=== PATIENT | male | born 1965 | race Caucasian/White ===

== ENCOUNTER 2016-10-10 12:05 | Observation (INO) | payer OTHER ==
[~2016-10-10] VITALS: Ht 175.3 cm; Wt 100.2 kg
[2016-10-10] VITALS (15 sets, daily range): BP systolic 110–141; BP diastolic 58–92; PULSE 48–75; RESP 12–20; O2SAT 95–100
--- NOTE | 2016-10-10 12:17 | ED.REPORT ---
HPI-Abd Pain M 40 and Over Date of Service October 10, 2016 ED Provider: Justin Smith MD The patient is a 51 year old male who presents to the ED sent from [facility] with intermittent, RLQ abdominal pain for the past 2 days. The pain was initially dull and has become "sharp." There are no particular body movements that make it worse, the pain comes and goes on its own. C/o associated nausea. He denies fever, vomiting, dysuria, hematuria, penile discharge, and back pain. He has never experienced pain like this before. His last meal was as protein shake this morning at 0715. Nursing Notes Stated Complaint: ABD PAIN SENT BY [facility] Chief Complaint: Male Abdominal Pain Nursing Notes Reviewed: Yes Allergies: Coded Allergies: No Known Allergies (Unverified , 10/10/16) Scheduled Cholecalciferol (Vitamin D3) (Vitamin D3) 5,000 Unit Capsule 5,000 UNIT PO DAILY Chromium Picolinate (Chromium Picolinate) 200 Mcg Capsule 200 MCG PO DAILY Cyanocobalamin (Vitamin B-12) (Vitamin B-12) 1,000 Mcg Tablet 1,000 MCG PO DAILY Fish Oil/Borage/Flax/Om3,6,9#1 (Triple [place] Complex 3-6-9) 400 Mg Capsule 400 MG PO DAILY Gluc 2Kcl/Chondr/Marva Hy/Hy AC (Glucosamine & Chondroitin Cap) 1 Each Capsule 1 EACH PO DAILY Green Tea [place] Extract (Green Tea) 1 Each Capsule 1 EACH PO DAILY Lutein Extract/Zeaxanthin Ext (Lutein 15 mg Softgel) 1 Each Capsule 1 EACH PO DAILY Multivitamin (Multivitamins) 1 Each Capsule 1 EACH PO DAILY Ubidecarenone (Coq-10) 30 Mg Capsule 30 MG PO DAILY Scheduled PRN Calcium Carbonate (Tums) 500 Mg Tab.chew 500 MG PO QID PRN PRN For Dyspepsia or Heartburn General Time Seen by MD: 12:14 Chief Complaint Abdominal pain Hx Obtained From: Patient Arrived By: Walk-in Sudden in Onset?: Yes Onset Occurred: 2 days ago Symptom Duration: Since onset Location: : RLQ Quality: Painful, Sharp Severity: Current: Moderate Recent Healthcare: Recent doctor visit Similar Sx Previous: Yes Past Medical History Past Medical History denies Past Surgical History denies Social History Other Social History: Good social support, Local resident Ambulatory Status Independent Review of Systems GI: Reports: Abdominal pain, Nausea, Denies: Vomiting Male: Denies Dysuria, Denies Hematuria, Denies Penile discharge Musculoskeletal: Denies: Back pain Complete sys rev & neg: except as marked. Physical Exam Initial Vital Signs Vital Signs (First) Date Time Temp Pulse Resp B/P Pulse Ox O2 Delivery O2 Flow Rate FiO2 10/10/16 12:08 36.6 64 18 129/92 97 Room Air Initial VS: Reviewed Head / Eyes: Atraumatic, Normocephalic, PERRL ENT: Mucous membranes moist Neck: Supple, Non-tender Extremities: Vascular intact, Neuro intact, No swelling, No tenderness Skin: Warm, Dry General/Constitutional: Awake, Alert, Cooperative, Not toxic appearing Respiratory / Chest: Atraumatic, Breath sounds NL, Breath sounds = bilat, No respiratory distress Cardiovascular: Heart rate NL, Regular rhythm, Heart sounds NL Abdomen: No guarding, No rebound Tenderness/Guarding/Rebound: Positive: Tender RLQ... Back: Atraumatic, Inspection NL, Full range of motion Interpretation & Diagnostics Interpretation & Diagnostics: APPENDIX ULTRASOUND IMPRESSION: Appendix is not clearly identified and appendicitis cannot be excluded. If indicated CT could be performed for further assessment Dictated by: Jesus Ness RRA Interpreted: Mel Schwartz MD on 10/10/2016 at 13:59 Transcribed by: DARCI on 10/10/2016 at 14:01 Lab Results Interpretation Result Diagram: 10/10/16 1241 10/10/16 1241 Test 10/10/16 12:41 10/10/16 13:00 White Blood Count 8.0th/mm3 (3.8-10.1) Red Blood Count 5.45mil/mm3 (4.40-5.80) Hemoglobin 16.3g/dL (13.8-17.2) Hematocrit 48.2% (41.0-50.0) Mean Corpuscular Volume 88.4fL (81-100) Mean Corpuscular Hemoglobin 29.9pg (27.0-35.0) Mean Corpuscular Hemoglobin Concent 33.8% (32.0-37.0) Red Cell Distribution Width 13.3% (12.3-15.4) Platelet Count 246bil/L (150-400) Neutrophils (%) (Auto) 50.7% (40-74) Lymphocytes (%) (Auto) 33.0% (14-46) Monocytes (%) (Auto) 10.8% (4-12) Eosinophils (%) (Auto) 5.0% (0-5) Basophils (%) (Auto) 0.4% (0-3) Sodium Level 137mEq/L (134-144) Potassium Level 4.2mEq/L (3.5-5.2) Chloride Level 99mEq/L (97-108) Carbon Dioxide Level 24mmol/L (18-29) Blood Urea Nitrogen 19mg/dL (6-24) Creatinine 1.16mg/dL (0.76-1.27) Estimat Glomerular Filtration Rate 71mL/min (>59) Glucose Level 101mg/dL (60-99) Calcium Level 9.7mg/dL (8.5-10.1) Magnesium Level 2.1mg/dL (1.6-2.6) Total Bilirubin 0.6mg/dL (0.0-1.2) Aspartate Amino Transf (AST/SGOT) 19U/L (0-50) Alanine Aminotransferase (ALT/SGPT) 25U/L (0-44) Alkaline Phosphatase 63U/L (25-150) Total Protein 7.5g/dL (6.4-8.4) Albumin 4.4g/dL (3.4-5.0) Lipase 64U/L (13-60) Urine Color Yellow (YELLOW) Urine Appearance Hazy (CLEAR,HAZY) Urine pH 5.5 (5.0-8.0) Urine Specific [place] 1.025 (1.003-1.035) Urine Protein Negativemg/dL (NEG,TRACE) Urine Glucose (UA) Negativemg/dL (NEGATIVE) Urine Ketones Negativemg/dL (NEGATIVE) Urine Occult Blood Negative (NEGATIVE) Urine Nitrite Negative (NEGATIVE) Urine Bilirubin Negative (NEGATIVE) Urine Urobilinogen Normalmg/dL (NORMAL) Urine Leukocyte Esterase Negative (NEGATIVE) Urine RBC 0-2/hpf (0-2) Urine WBC 0-5/hpf (0-5) Urine Epithelial Cells Few/hpf (NONE-MOD) Urine Crystals None seen (NONE SEEN) Urine Bacteria Few/hpf (NONE-FEW) Urine Hyaline Casts None/lpf (NONE) Urine Granular Casts None seen (NONE SEEN) Urine Waxy Casts None seen (NONE SEEN) Urine Red Blood Cell Casts None seen (NONE SEEN) Urine White Blood Cell Casts None seen (NONE SEEN) Urine Mucus None seen (None Seen) Urine Trichomonas None seen (NONE SEEN) Urine Yeast None (NONE SEEN) Urinalysis Comment Amorphous sediment Urine Culture Reflexed Not indicated Hold Urine Received (Received) CT Abd / Pelvis Interpretation IMPRESSION: 1. Mild enlargement of the appendix with mild wall thickening and fat stranding as well as slightly increased enhancement. The constellation of findings are compatible with mild appendicitis without evidence of perforation or appendicolith. 2. Soft tissue fullness extending posteriorly from the body of the pancreas without a discrete well-defined mass identified. Consider followup evaluation with a pancreatic protocol CT or MRI to exclude a mass lesion. Findings discussed with Dr. Smith on 10/10/16 at 2:25 PM. Dictated by: Naresh Hernández M.D. on 10/10/2016 at 14:22 Approved by: Naresh Hernández M.D. on 10/10/2016 at 14:33 Study type: Abdominal CT no contrast Interpretation / Wet Read by: Interpret - Radiologist Re-Eval/Medical Decision Med Decision/Clinical Course Appendicitis. Discussed with surgeon will admit to OR. Zosyn given. Blood cultures sent. 2 L normal saline given. Consultation : Call Returned at: 14:28 Laborer Tin Can: Agrees with eval, Agrees with plan Note: Case discussed with radiology. Conclusive appendectomy. Plan to admit to OR. Counseled Regarding: Diagnosis, Lab results, Need for admission Discharge & Departure Primary Impression: Appendicitis Appendicitis type: acute appendicitis Acute appendicitis type: unspecified acute appendicitis type Qualified Code: K35.80 - Unspecified acute appendicitis Disposition: ADMITTED TO HOSPITAL Vital Signs - All Vital Signs Date Time Temp Pulse Resp B/P Pulse Ox O2 Delivery O2 Flow Rate FiO2 10/10/16 12:46 36.6 75 20 134/86 97 Room Air 10/10/16 12:08 36.6 64 18 129/92 97 Room Air )( All Prior VS Reviewed: Yes Condition: Stable Referrals: [facility] Scribe Attestation Portion of this note were transcribed by Amada Hou. I, Dr. Smith, personally performed the history, physical exam, and medical decision-making: I reviewed and confirmed the accuracy for the information in the transcribed note. Signed by: sanchez Swenson, 10/10/16 1500 copies to: [facility] Justin Smith MD October 10, 2016 12:17 Amada Hou October 10, 2016 12:39
[2016-10-10] MEDS ORDERED: 0.9% Sodium Chloride 1,000 ML IV ONE ×2 (12:38→14:55)
[2016-10-10] MEDS ORDERED: Ondansetron 2 mg/mL 2 mL Inj IVPUSH PRN ×4 (12:40→19:45)
[2016-10-10 12:52] LABS: BASOPHILS % (AUTO) 0.4 % (0-3); MONOCYTES % (AUTO) 10.8 % (4-12); Mean Corpuscular Hemoglobin 29.9 pg (27.0-35.0); Mean Corpuscular Volume 88.4 fL (81-100); NEUTROPHILS % (AUTO) 50.7 % (40-74); Platelet Count 246 bil/L (150-400)
[2016-10-10 13:28] LABS: Magnesium 2.1 mg/dL (1.6-2.6)
--- NOTE | 2016-10-10 14:01 | DRSVH ---
PROCEDURE: US APPENDIX INDICATIONS: RLQ r/o appy TECHNIQUE: Real-time focused scanning was performed of the abdomen with attention to the appendix, with image do cumentation. COMPARISON: None. FINDINGS: Limited evaluation of the right lower quadrant demonstrates no abnormalities. The appendix is not cl early identified sonographically. No definite abnormal fluid collections or masses seen. Focal righ t lower quadrant tenderness is noted with compression and there is adjacent peristalsing bowel. IMPRESSION: Appendix is not identified; appendicitis cannot be excluded. If indicated CT could be pe rformed for further assessment Dictated by: Jesus Ness RRA Interpreted: Mel Schwartz MD on 10/10/2016 at 13:59 Transcribed by: DARCI on 10/10/2016 at 14:01 Approved by: Mel Schwartz M.D. on 10/10/2016 at 17:48
--- NOTE | 2016-10-10 14:34 | DRSVH ---
PROCEDURE: CT ABDOMEN AND PELVIS WITH CONTRAST ([id number]) INDICATIONS: RLQ tenderness TECHNIQUE: After the administration of oral and intravenous contrast, 5 mm thick sections acquired from the diap hragms to the symphysis. 5 mm thick coronal and sagittal reformats were performed. For radiation do se reduction, the following was used: automated exposure control, adjustment of mA and/or kV accordi ng to patient size. COMPARISON: None. FINDINGS: Image quality: Excellent. ABDOMEN: Lung bases: There is mild dependent atelectasis. Heart size is normal. Solid organs: There is mild hypoattenuation of the liver consistent with fatty infiltration with rela tive sparing along the gallbladder fossa in the left hepatic lobe. The spleen is normal in size. Ga llbladder appears within normal limits without calcified gallstones. Biliary system is non-dilated. There is a lobulated component of the body of the pancreas extending posteriorly which appears isoat tenuating. A discrete mass is not definitively identified. No adrenal nodules. Kidneys and a strai ght hydronephrosis. There is a small left renal cyst. Peritoneum and bowel: Stomach, small bowel, and colon loops are normal in caliber and wall thickness . The appendix measures up to 9 mm in diameter with slight wall thickening proximally and minimal pe riappendiceal fat stranding. There is slightly increased wall enhancement. No appendicolith. Findi ngs suggest early appendicitis. No associated free fluid or fluid collections. No free air. The co marysol demonstrates diverticulosis without acute diverticulitis. Nodes and vessels: No retroperitoneal or mesenteric adenopathy. Aorta and inferior vena cava are no rmal in caliber. Miscellaneous: No ventral hernias. PELVIS: Genitourinary: Bladder wall thickness is normal. Miscellaneous: No inguinal hernias or adenopathy. Bones: No suspicious bony lesions. No vertebral body compression fractures. IMPRESSION: 1. Mild enlargement of the appendix with mild wall thickening and fat stranding as well as slightly increased enhancement. The constellation of findings are compatible with mild appendicitis without e vidence of perforation or appendicolith. 2. Soft tissue fullness extending posteriorly from the body of the pancreas without a discrete well- defined mass identified. Consider followup evaluation with a pancreatic protocol CT or MRI to exclud e a mass lesion. Findings discussed with Dr. Smith on 10/10/16 at 2:25 PM. Dictated by: Naresh Hernández M.D. on 10/10/2016 at 14:22 Approved by: Naresh Hernández M.D. on 10/10/2016 at 14:33
[2016-10-10] MEDS ORDERED: Alum-Mag Hydrox-Simeth 30 mL Suspension PO PRN (14:55)
[2016-10-10] MEDS ORDERED: Piperacillin-Tazo 3.375 Gm Inj 3.375 GM in Dextrose 5% Minibag Plus 50 ML IV ONE ×2 (14:55→17:00)
[2016-10-10] MEDS ORDERED: fentaNYL-PF 50 mCg/mL 2 mL Inj ONE (15:27)
[2016-10-10] MEDS ORDERED: HYDROmorphone 2 mg/mL Inj ONE (15:27)
[2016-10-10] MEDS ORDERED: Neostigmine 1 mg/mL 10 mL Inj ONE (15:27)
[2016-10-10] MEDS ORDERED: Glycopyrrolate 0.2 MG/ML 1mL Inj ONE (15:27)
[2016-10-10] MEDS ORDERED: Dexamethasone 4 mg/mL Inj ONE (15:27)
[2016-10-10] MEDS ORDERED: Propofol 10,000 mCg/mL 20 mL Inj ONE (15:27)
[2016-10-10] MEDS ORDERED: Rocuronium 10 mg/mL 5 mL Inj ONE (15:27)
[2016-10-10] MEDS ORDERED: Ondansetron 2 mg/mL 2 mL Inj ONE (15:27)
--- NOTE | 2016-10-10 15:43 | HP ---
[address] [address] HISTORY AND PHYSICAL PATIENT: ENDY SUAREZ : 1965 MR#: [id number] ADMIT: 10/10/2016 JOB ID: [id number] CHIEF COMPLAINT: A 51-year-old gentleman with acute appendicitis seen in consultation at the request of Justin Masters M.D. HISTORY OF PRESENT ILLNESS: The patient is a 51-year-old gentleman who developed abdominal pain two days ago that was on Saturday initially in the mid abdomen, then slowly migrated to the right lower side and became more sharp. He presented to [facility] earlier today and was then sent to the emergency department. He has had mid abdominal pain a long time ago, but never like this. He has never had a colonoscopy. OTHER MEDICAL PROBLEMS: Obesity. PRIOR OPERATIONS: None. REVIEW OF SYSTEMS: Twelve point review of systems negative other than the pertinent positives noted in the history of present illness and other medical problems. MEDICATIONS AT HOME: None. ALLERGIES: None. SOCIAL HISTORY: He works in [email or web address] and [employer] in [employer]. He does not smoke. He does walk for exercise. INVESTIGATIONS: Labs of October 10, 2016, WBC 8.0, hemoglobin 16.3, platelet count 246. Glucose 101, creatinine 1.16, lipase 64. Ultrasound obtained could not visualize the appendix. Abdominal CT with contrast performed showed mild enlargement of the appendix with wall thickening and fat stranding as well as increased enhancement. There was also soft tissue fullness seen to be extending posterior from the body of the pancreas without a discrete mass. PHYSICAL EXAM: A 51-year-old gentleman in no acute distress. BMI 32.8, temperature 36.6, pulse 75, blood pressure 134/86, saturating 97% on room air. Eyes: Normal pupils, conjunctivae. Ears, nose, and throat: Normal external appearance. Neck: No lymphadenopathy or jugular venous distention. Cardiovascular: Regular rate and rhythm. Respiratory: Normal effort, clear to auscultation. Gastrointestinal: Focally tender to palpation in the right lower quadrant. Musculoskeletal: Normal strength in extremities. Neurologic: No gross deficits. Psychiatric: Alert, appropriate. ASSESSMENT AND PLAN: Acute appendicitis. Discussed the pathophysiology and treatment rationale and discussed laparoscopic appendectomy and the recent exploration of non operative management. He chose to proceed with the laparoscopic appendectomy. We are going to start him on antibiotics. After discussing the risks, benefits, and alternatives, he wished to proceed and we will go ahead accordingly.
[2016-10-10] MEDS ORDERED: GREE1CAP PO (15:55)
[2016-10-10] MEDS ORDERED: CALC500T9 PO (15:55)
[2016-10-10] MEDS ORDERED: FISH400C2 PO (15:55)
[2016-10-10] MEDS ORDERED: MULT1CAP33 PO (15:55)
[2016-10-10] MEDS ORDERED: UBID30CA12 PO (15:55)
[2016-10-10] MEDS ORDERED: CYAN10008 PO (15:55)
[2016-10-10] MEDS ORDERED: GLUC-120 PO (15:55)
[2016-10-10] MEDS ORDERED: CHRO200C PO (15:55)
[2016-10-10] MEDS ORDERED: CHOL5000 PO (15:55)
[2016-10-10] MEDS ORDERED: LUTE1CAP PO (15:55)
--- NOTE | 2016-10-10 17:54 | NUR ---
Admit at 1620 to room 248-1 Pt arrived in w/ch from ER. Able to stand and transfer to bed indep. c/o intermit pain, sharp and passes after a short time pt not wanting to take medication at this time. 1755 pt taken to OR on a stretcher. belongings left in room, watch, phone clothing pt notified sister via text about this hospitalization.
[2016-10-10] MEDS ORDERED: Lactated Ringer's 500 ML IV PRN (18:01)
[2016-10-10] MEDS ORDERED: Lactated Ringer's 1,000 ML IV SCH (18:01)
[2016-10-10] MEDS ORDERED: Lactated Ringer's 1,000 ML IV ONE (18:01)
--- NOTE | 2016-10-10 18:01 | PCM.HPANE ---
Patient Data Date of Service: October 10, 2016 Surgeon Admitting Provider:Marni Sanchez MD Attending Provider:Marni Sanchez MD Primary Care Physician:Naresh Clark MD Other Provider: Reason for Visit APPY Ht/WT & BMI Height (Feet): 5 Height (Inches): 9.00 Weight (Kilograms): 100.200 Body Mass Index 32.72 Allergies Coded Allergies: No Known Allergies (Unverified , 10/10/16) Past Anesthesia History Anesthesia History: Denies:: Anesthesia Reactions Diabetes History Hx Diabetes?: No MRSA MRSA: No Medications Hypertension Medication: No Home Meds Incl Beta Biju: No Reported Medications Chromium Picolinate 200 Mcg [id number] Mcg PO DAILY 10/10/16 Green Tea [place] Extract (Green Tea)1 Each Capsule1 Each PO DAILY 10/10/16 Cholecalciferol (Vitamin D3) (Vitamin D3)5,000 Unit Capsule5,000 Unit PO DAILY 10/10/16 Calcium Carbonate (Tums)500 Mg Tab.xtct994 Mg PO QID PRN For Dyspepsia or Heartburn 10/10/16 Ubidecarenone (Coq-10)30 Mg [id number] Mg PO DAILY 10/10/16 Lutein Extract/Zeaxanthin Ext (Lutein 15 mg Softgel)1 Each Capsule1 Each PO DAILY 10/10/16 Gluc 2Kcl/Chondr/Marva Hy/Hy AC (Glucosamine & Chondroitin Cap)1 Each Capsule1 Each PO DAILY 10/10/16 Fish Oil/Borage/Flax/Om3,6,9#1 (Triple [place] Complex 3-6-9)400 Mg [id number] Mg PO DAILY 10/10/16 Cyanocobalamin (Vitamin B-12) (Vitamin B-12)1,000 Mcg Tablet1,000 Mcg PO DAILY 10/10/16 Multivitamin (Multivitamins)1 Each Capsule1 Each PO DAILY 10/10/16 History History of ENT Problems?: No HEENT History: Positive for:: Sinus Problem (sinus infection every other fall) Denies:: Abnormal Airway Cataracts Difficult Intubation Dysphagia Glaucoma Hearing Problem TMJ Denture Type: None Teeth Condition: Within Normal Limits Hx of Heart Problems?: No Cardiovascular History: Denies:: Cardiac Surgery Chest Pain Congestive Heart Failure Heart Murmur Hypertension Irregular Heartbeat Pacemaker Thrombophlebitis Hx of Respiratory Problem?: No Respiratory History: Denies:: Tuberculosis Hx Neurologic Problems?: No Hx of GI Problems?: No Hx of Problems?: No Genitourinary History: Denies:: HX of Hemodialysis Kidney Stones HX of Peritoneal Dialysis: No Male Hx: Denies:: Prostate Problems Scrotal Mass Testicular Surgery Hx Musculoskeletal Problems?: No Hx of Psycho/Social Problems?: No Hx Surgeries?: No Hx Any Other Health Problems?: No Other History: Denies:: Cancer Hospitalization Thyroid Disease History Blood Transfusions: Positive for:: Accept Blood Products? Denies:: Blood Transfuse Reaction Blood Transfusions Hx Diabetes: No Hx Alcohol Use: NoAlcoholic Drinks Per Day: wine 1-2x per yearHx Substance Use : NoHave You Smoked inLast 12 mo: No Stop/Bang Treated for Sleep Apnea?: No Do You Have a CPAP Machine?: No S-Snoring: Do You Snore Loudly: Yes T-Tired: feel tired, fatigued: Yes O-Obsered: Observed not breath: No P-Blood Pressure: treated: No B- Body Mass Index > 35 kg/m2: No A- Age over 50: Yes N- Neck Large Circumference: No G- Gender Male: Yes DAYA Total Score: 3 DAYA Risk Assessment: High Risk, =/>3 Yes Risk Assessment Category Category 1A: Patient has history of documented sleep apnea, and HAS NOT received any narcotic, sedative or anesthesia administration during this stay. Category 1B: Patient has history of documented sleep apnea, and HAS received any narcotic , sedative or anesthesia administration during this stay Category 2: Patient has SUSPECTED Obstructive Sleep Apnea, and HAS received any narcotic , sedative or anesthesia administration during this stay. Category 3: Patient has SUSPECTED Obstructive Sleep Apnea and HAS NOT received narcotic, sedative or anesthesia administration during this stay. Category 4: Outpatient in Procedural Areas with known sleep apnea or who screen positive for High Risk via the STOP/BANG questionnaire. Exam Exam Vital Signs Vital Signs Date Time Temp Pulse Resp B/P Pulse Ox O2 Delivery O2 Flow Rate FiO2 10/10/16 15:43 36.8 65 20 141/79 98 Room Air 10/10/16 12:46 36.6 75 20 134/86 97 Room Air 10/10/16 12:08 36.6 64 18 129/92 97 Room Air General Appearance: Alert, Oriented X3, Cooperative, Mild Distress HEENT/AIRWAY: MP 2 Lungs: Normal Air Movement Heart: Exam Unremarkable Meds/Labs/Diagnostics Admission Meds Current Medications Sodium Chloride 1,000 ml @ 0 mls/hr Q0M ONCE IV Last administered on 13:07; Start 10/10/16 at 12:38; Stop 10/10/16 at 12:39; Status DC Sodium Chloride 1,000 ml @ 0 mls/hr Q0M ONCE IV Last administered on 15:22; Start 10/10/16 at 14:55; Stop 10/10/16 at 14:56; Status DC Piperacillin Sod/ Tazobactam Sod/ Dextrose/Water (Zosyn 3.375 Gm Inj/D5W Minibag Plus) 50 ml @ 100 mls/hr ONCE ONCE IV Last administered on 10/10/16 17:33; Start 10/10/16 at 17:00; Stop 10/10/16 at 17:29; Status DC Labs Test 10/10/16 12:41 10/10/16 13:00 White Blood Count 8.0th/mm3 (3.8-10.1) Red Blood Count 5.45mil/mm3 (4.40-5.80) Hemoglobin 16.3g/dL (13.8-17.2) Hematocrit 48.2% (41.0-50.0) Mean Corpuscular Volume 88.4fL (81-100) Mean Corpuscular Hemoglobin 29.9pg (27.0-35.0) Mean Corpuscular Hemoglobin Concent 33.8% (32.0-37.0) Red Cell Distribution Width 13.3% (12.3-15.4) Platelet Count 246bil/L (150-400) Neutrophils (%) (Auto) 50.7% (40-74) Lymphocytes (%) (Auto) 33.0% (14-46) Monocytes (%) (Auto) 10.8% (4-12) Eosinophils (%) (Auto) 5.0% (0-5) Basophils (%) (Auto) 0.4% (0-3) Sodium Level 137mEq/L (134-144) Potassium Level 4.2mEq/L (3.5-5.2) Chloride Level 99mEq/L (97-108) Carbon Dioxide Level 24mmol/L (18-29) Blood Urea Nitrogen 19mg/dL (6-24) Creatinine 1.16mg/dL (0.76-1.27) Estimat Glomerular Filtration Rate 71mL/min (>59) Glucose Level 101mg/dL (60-99) Calcium Level 9.7mg/dL (8.5-10.1) Magnesium Level 2.1mg/dL (1.6-2.6) Total Bilirubin 0.6mg/dL (0.0-1.2) Aspartate Amino Transf (AST/SGOT) 19U/L (0-50) Alanine Aminotransferase (ALT/SGPT) 25U/L (0-44) Alkaline Phosphatase 63U/L (25-150) Total Protein 7.5g/dL (6.4-8.4) Albumin 4.4g/dL (3.4-5.0) Lipase 64U/L (13-60) Hold Urine Received (Received) Plan Impression Patient chart reviewed, patient interviewed and anesthestic plan with risks, benefits, and alternatives discussed, and informed consent obtained. ASA Physical Status: ASA1 Normal Healthy Anesthetic Plan: GA Bene/Risks/Altern/Consents: Yes HP Complete Prior to Induction: Yes Jhonatan Caro MD October 10, 2016 17:40
[2016-10-10] MEDS ORDERED: MetoCLOpramide 5 mg/mL 2 mL Inj IVPUSH PRN ×2 (18:05→19:45)
[2016-10-10] MEDS ORDERED: fentaNYL-PF 50 mCg/mL 2 mL Inj IVPUSH PRN (18:05)
[2016-10-10] MEDS ORDERED: HYDROmorphone 1 mg/mL Inj IVPUSH PRN (18:05)
[2016-10-10] MEDS ORDERED: Dexamethasone 4 mg/mL Inj IVPUSH PRN (18:05)
[2016-10-10] MEDS ORDERED: Labetalol 5 mg/mL 4 mL Inj IV PRN (18:05)
[2016-10-10] MEDS ORDERED: EPHEDrine Sulfate 50 mg/mL Inj IVPUSH PRN (18:05)
[2016-10-10] MEDS ORDERED: Atropine 0.4 mg/mL Inj IVPUSH PRN (18:05)
[2016-10-10] MEDS ORDERED: Phenylephrine 10,000 mCg/mL Inj IVPUSH PRN (18:05)
[2016-10-10] MEDS ORDERED: Bupivacaine-MPF 0.5% 30 mL Inj INFILTRATE ONE (18:31)
--- NOTE | 2016-10-10 19:43 | PCM.ANEP1 ---
Post Anesthesia PACU Phase 1 Assessment Vital Signs Vital Signs Date Time Temp Pulse Resp B/P Pulse Ox O2 Delivery O2 Flow Rate FiO2 10/10/16 15:43 36.8 65 20 141/79 98 Room Air 10/10/16 12:46 36.6 75 20 134/86 97 Room Air 10/10/16 12:08 36.6 64 18 129/92 97 Room Air Anesthetic Administered: GA Level of Alertness: Drowsy, not talking BOWERS's with Equal Strength: Yes Pain: No Nausea or Vomiting: No CV Function and Hydration: No Airway Device: Oralpharangeal Airway Oxygen Delivery: Simple Mask Lungs: Normal Air Movement PACU Phase 2 Assessment Complications: No Follow up Care: N/A Patient Instructions Provided: N/A Jhonatan Caro MD October 10, 2016 19:43
--- NOTE | 2016-10-10 19:44 | PCM.SURGPO ---
Immediate Operative Note Date of Surgery: October 10, 2016 Pre Operative Diagnosis Acute Appendicitis Post Operative Diagnosis Acute Non perforated Appendicitis Procedure Laparoscopic Appendectomy Surgeon and Diamond Powder Mixer Surgeon: Marni Sanchez MD Assistants: Mohamud Clinton, PAC Findings Non perforated , retrocecal Complications There were no periprocedural complications identified. Surgical Specimen Removed: Yes Specimen sent to Pathology: Yes Anesthetic Administered: GA Grafts, Implants: None Output, Estimated Blood Loss: 1 Blood Admin during surgery: No Attending Statement Oil Recovery Unit Operator listed was medically required for the successful completion of the case Marni Sanchez MD October 10, 2016 19:44
[2016-10-10] MEDS ORDERED: DEXTROSE 5% IV SCH (19:45)
[2016-10-10] MEDS ORDERED: Sodium Chloride LOK Flush 10 mL Syringe IVFLUSH PRN (19:45)
[2016-10-10] MEDS ORDERED: CEFOTETAN IV SCH (19:45)
--- NOTE | 2016-10-10 20:23 | NUR ---
Report received from PACU at 2022 from Lori.
[2016-10-10] MEDS ORDERED: Cefotetan Inj 2,000 MG in IV Premix 1 EACH IV SCH (20:30)
[2016-10-10 20:43] LABS: APPEARANCE,URINE HAZY (CLEAR,HAZY); COLOR,URINE YELLOW (YELLOW); OCCULT BLOOD,URINE NEGATIVE (NEGATIVE); PH,URINE 5.5 (5.0-8.0); UROBILINOGEN,URINE NORMAL (NORMAL)
--- NOTE | 2016-10-10 20:50 | NUR ---
POST OP Pt arrived on flood from PACU at 2045, transferred self to bed. No pain, strong need to void. SL, 2L NC, switched to RA. Cpox placed for DAYA. 3 lap sites with steri-strips and bandaids CDI, no drainage. Gave water, tolerated well. Hourly rounding.
[2016-10-10] MEDS ORDERED: 0.9% Sodium Chloride 100 ML ONE (21:56)
[2016-10-11 00:55] VITALS: BP 136/79; PULSE 65; RESP 18; O2SAT 95
--- NOTE | 2016-10-11 02:37 | OP ---
[address] [address] OPERATIVE REPORT PATIENT: ENDY SUAREZ : 1965 MR#: [id number] ADMIT: 10/10/2016 JOB ID: [id number] DATE OF SURGERY: 10/10/2016 PREOPERATIVE DIAGNOSIS(ES): Acute appendicitis. POSTOPERATIVE DIAGNOSIS(ES): Acute non perforated appendicitis. SURGEON: Marni Sanchez MD DOBBY LOOM CHAIN PEGGER: Cheko Clinton PA-C PROCEDURE PERFORMED: Laparoscopic appendectomy. INDICATIONS: The patient is a 51-year-old gentleman who developed abdominal pain two days ago which then became more focal on the right side prompting him to present to [facility] who then sent him to the emergency department. His white count was normal but CT was consistent with appendicitis and prompting a surgical consult. After discussing the risks, benefits, and alternatives, he was brought to the operating room for laparoscopic appendectomy. PROCEDURE DETAILS: He was placed in the supine position, underwent smooth induction of general anesthesia. The Brown catheter was placed. Abdomen was prepped and draped in the usual sterile fashion. Surgical time-out was undertaken using safety checklist, and all were in agreement. We then entered the abdomen in an infraumbilical location under open Ivana technique. We obtained pneumoperitoneum with a 5-mm port and then upsized to a 12. I then placed two 5-mm ports, one in the suprapubic location and the other one in the left lower quadrant. I then noticed adhesions off of the cecum in the right colon and the terminal ileum to the abdominal wall with the appendix in a retrocecal location. I took these adhesions down sharply and was able to identify the base of the appendix and was able to dissect a defect within the mesentery and divided the appendix with an Endo-CHRISTOPHER stapler. I then took down the mesentery of the appendix with electrocautery close to the specimen ensuring good hemostasis. After that I suctioned all the fluid out from the right lower quadrant in the pelvis, place the appendix in an EndoCatch bag and removed it through the umbilical port site. Pneumoperitoneum was evacuated. The umbilical site fascia was closed with [id number] 0-Vicryl suture. Skin was reapproximated with 4-0 Monocryl. Steri-Strips and sterile dressing were applied. Patient was recovered from anesthesia and was taken to the recovery room in stable condition.
[2016-10-11 05:55] VITALS: BP 131/83; PULSE 68; RESP 20; O2SAT 100
[2016-10-11] MEDS ORDERED: Polyethylene Glycol (PEG) 17 Gm Powder PO SCH (08:30)
--- NOTE | 2016-10-11 08:45 | PCM.PNSURG ---
Subjective Date of Service: October 11, 2016 Visit Information: Laparoscopic Appendectomy for Appendicitis Post-Op Day # 1 Date of Admission: October 10, 2016 at 15:26 Hospital Day # 2 Subjective: Feels well. Pain controlled just with tylenol Objective Vital Sign- Last 8 Hours Date Time Temp Pulse Resp B/P Pulse Ox O2 Delivery O2 Flow Rate FiO2 10/11/16 05:55 36.9 68 20 131/83 100 Room Air 10/11/16 00:55 37.0 65 18 136/79 95 Room Air Intake and Output- Last 8 Hour 10/11/16 Cumulative From/Thru 07:00 10/10/16 12:08 - 10/11/16 05:55 Intake Total 2431 ml 5431 ml Output Total 1750 ml 1851 ml Balance 681 ml 3580 ml Intake Oral 2228 ml 2228 ml IV Total 203 ml 3203 ml Output Urine Total 1750 ml 1850 ml Estimated Blood Loss 1 ml # Voids 3 # Bowel Movements 1 Abdomen: Soft, Other (dressings dry) Result Diagram: 10/10/16 1241 10/10/16 1241 Assessment & Plan Impression Doing well Problems: Plan Ambulate Regular diet Discharge Home Marni Sanchez MD October 11, 2016 08:45
--- NOTE | 2016-10-11 08:47 | PCM.DISURG ---
Surgical Discharge Instruction Date of Service October 11, 2016 Dates of Hospitalization Date of Hospital Admission October 10, 2016 at 15:26 Providers Admitting Physician: Marni Sanchez MD Primary Care Physician: Naresh Clark MD Attending Physician: Marni Sanchez MD Discharge Diagnosis Post Operative diagnosis Acute Non perforated Appendicitis s/p Laparoscopic Appendectomy Diet Discharge Diet: No restrictions Activity Discharge Activity-General: No lifting >15 pounds for 2 weeks Dressing and Incisional Care Dressing Care: Remove outer dressing after 24 hrs Hygiene: September shower Follow Up Plan Mid-level Provider (F9): Randee Eric PAC Follow-up appointment: Weeks (2) Marni Sanchez MD October 11, 2016 08:47
[2016-10-11 09:16] VITALS: BP 138/86; PULSE 75; O2SAT 98
--- NOTE | 2016-10-11 10:25 | NUR ---
Discharge Pt discharged from unit. Pt requested to wait in the lobby for his friend to pick him up. Pt provided with information on procedure, medications to take for pain (OTC), signs to watch for, and follow up. Pt escorted off the floor with his belongings.
--- NOTE | 2016-10-11 13:22 | PCM.DC.SUR ---
Discharge Summary Date of Service: Date of Hospital Admission: October 10, 2016 at 15:26 Date of Operation(s): 10/10/2016 Date of Discharge: 10/11/2016 Diagnosis at Time of Discharge 1. Acute nonperforated appendicitis 2. Obesity, BMI 32.6 Problems: Operation Laparoscopic appendectomy Brief History and Physical: The patient is a 51-year-old gentleman who developed abdominal pain two days Prior to admission which then became more focal on the right side prompting him to present to [facility] who then sent him to the emergency department. His white count was normal but CT was consistent with appendicitis and prompting a surgical consult. Consultants: None Hospital Course: The patient was admitted and underwent the above-mentioned operation without complication. The following day. Pathology: Pending Disposition: The patient was discharged to home on his first postsurgical day. At the time of discharge he was tolerating pain on oral Tylenol, his wounds were dry and intact, he was tolerating solid foods with no nausea or vomiting, and he was ambulating without assistance. Follow-up Plan: He will follow-up in the office with Randee Perez PA-C in 2 weeks. Calcium Carbonate (Tums) 500 Mg Tab.chew 500 MG PO QID PRN PRN For Dyspepsia or Heartburn (Reported) Cholecalciferol (Vitamin D3) (Vitamin D3) 5,000 Unit Capsule 5,000 UNIT PO DAILY (Reported) Chromium Picolinate (Chromium Picolinate) 200 Mcg Capsule 200 MCG PO DAILY ( Reported) Cyanocobalamin (Vitamin B-12) (Vitamin B-12) 1,000 Mcg Tablet 1,000 MCG PO DAILY (Reported) Fish Oil/Borage/Flax/Om3,6,9#1 (Triple [place] Complex 3-6-9) 400 Mg Capsule 400 MG PO DAILY (Reported) Gluc 2Kcl/Chondr/Marva Hy/Hy AC (Glucosamine & Chondroitin Cap) 1 Each Capsule 1 EACH PO DAILY (Reported) Green Tea [place] Extract (Green Tea) 1 Each Capsule 1 EACH PO DAILY (Reported) Lutein Extract/Zeaxanthin Ext (Lutein 15 mg Softgel) 1 Each Capsule 1 EACH PO DAILY (Reported) Multivitamin (Multivitamins) 1 Each Capsule 1 EACH PO DAILY (Reported) Ubidecarenone (Coq-10) 30 Mg Capsule 30 MG PO DAILY (Reported) copies to: Naresh Clark MD, Fred H PA-C October 11, 2016 13:22
--- NOTE | 2016-10-11 15:41 | PATH ---
SURGICAL PATHOLOGY Attending Physician:Marni Sanchez MD CASE STATUS: Signed Out PATIENT NAME: ENDY SUAREZ PID: [id number] : 1965 DATE COLLECTED:10/10/2016 00:00 SPECIMEN: Appendix CLINICAL HISTORY: APPENDICITIS 1). APPENDIX FINAL DIAGNOSIS: 1.APPENDIX: ACUTE APPENDICITIS. NO EVIDENCE OF MALIGNANCY. ICD10 CODE K35.80 GROSS DESCRIPTION: The specimen is received in one formalin filled container labeled with the patient's name, sublabeled "appendix" and consists of one cylindrical carmona appendix measuring 5.0 x 1.0 x 1.0 CM. The serosal surface is light carmona, smooth and glistening. There is a large amount of attached fatty tissue. Sectioning reveals the wall to be thickened to 0.2-0.3 CM. The lumen contains a red-ramesh to ramesh-carmona semisolid to friable material. [employer] sections are submitted in one cassette. 10/11/2016 [facility] MICRO DESCRIPTION: See diagnosis. ICD-9 CODES: CPT CODES: 1: 14706 Electronically Signed Out Breanna Meredith MD [facility] [address], [place] [address] Technical component performed at [facility], [address] [place] [address] Ave[address], [place], [address]
== END 2016-10-11 10:25 | disposition home or self-care (01) ==
LOC: SED 12:05 → MOC 15:26
PROVIDERS: ADMIT Student in an Organized Health Care Education/Training Program; ATTEND Student in an Organized Health Care Education/Training Program
PROC: 0DTJ4ZZ Resection of Appendix, Percutaneous Endoscopic Approach (ICD-10-PCS; principal; 2016-10-10 17:45)
DX: K35.80 Unspecified acute appendicitis (principal); E66.9 Obesity, unspecified; Z68.32 Body mass index [BMI] 32.0-32.9, adult
CPT/HCPCS: 36415; 44970; 74177; 76705; 80053; 81000; 83690; 83735; 85025; 96360; 96361; 99285; G0378; J1100; J1170; J2250; J2405; J2543; J2710; J3010; J7030; J7120; Q9967